=== PATIENT | male | born 1980 | race African-American/Black ===

== ENCOUNTER 2018-04-25 18:59 | Emergency (ER) | payer OTHER ==
[~2018-04-25] VITALS: Ht 190.5 cm; Wt 117.9 kg
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
[2018-04-25] MEDS ORDERED: DIPHTH,PERTUSS(ACELL),TET TOX 0.5 ML DISP.SYRIN. VAX IM ONE (19:15)
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
[2018-04-25] MEDS ORDERED: BACITRACIN ZINC TOPICAL OINT PACKET. TP ONE ×2 (20:15→20:30)
[2018-04-25 20:24] VITALS: BP 134/83
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
== END 2018-04-25 20:31 | disposition home or self-care (01) ==
LOC: EEVIPCON 18:59 → ER 18:59
DX: S06.0X0A Concussion without loss of consciousness, initial encounter (principal); S40.211A Abrasion of right shoulder, initial encounter; M54.2 Cervicalgia; J45.909 Unspecified asthma, uncomplicated; X99.8XXA Assault by other sharp object, initial encounter; Y93.89 Activity, other specified; Y92.89 Other specified places as the place of occurrence of the external cause; Y99.8 Other external cause status
CPT/HCPCS: 70450; 70486; 71046; 72125; 73030; 90471; 90715; 99284-25